=== PATIENT | male | born 1995 | race Caucasian/White ===

== ENCOUNTER 2018-04-19 12:28 | Observation (INO) ==
[2018-04-19 13:43] LABS: Bilirubin,Urine Negative (Negative); Blood,Urine Negative (Negative); Clarity,Urine Clear (Clear); Color,Urine Yellow (Yellow); Glucose,Urine (UA) >=1000 mg/dL (Normal); Ketones,Urine Negative (Negative); Leukocyte Esterase,Urine Negative (Negative); Nitrite,Urine Negative (Negative); PH,Urine 5.5 pH Units (5.0-8.0); Protein,Urine Negative (Neg-Trace); Specific Gravity,Urine > 1.030 (1.010-1.025); Urobilinogen,Urine Normal (Normal)
[2018-04-19] MEDS ORDERED: Isovue-370 500 ML INFUS..BTL IV ONE (13:59)
--- NOTE | 2018-04-19 14:16 | Emergency Department Note ---
Disposition Clinical Impression: Acute appendicitis Qualifiers: Acute appendicitis type: with localized peritonitis Appendicitis gangrene presence: without gangrene Appendicitis perforation presence: without perforation Appendicitis abscess presence: without abscess Qualified Code(s): K35.30 - Acute appendicitis with localized peritonitis, without perforation or gangrene Disposition: Admitted As Inpatient Condition: Good Referrals: NONE,PCP [Primary Care Provider] - Forms: ED Satisfaction Letter, Work/School Release Time of Disposition: 17:51 General Adult HPI - General Chief complaint: ED Abdominal Pain Stated complaint: Abd Pain Time Seen by Provider: 04/19/18 13:40 Source: patient Mode of arrival: ambulatory Limitations: no limitations - History of Present Illness HPI Narrative: This is a 22-year-old male who reports significant right lower quadrant pain that began about 20 hours prior to arrival and increased significantly about 12 hours prior to arrival. He has never had similar symptoms before. No nausea, vomiting, or diarrhea. Pain Scale: 5 - Related Data Allergies Allergy/AdvReac Type Severity Reaction Status Date / Time No Known Allergies Allergy Verified 11/18/16 09:49 All systems ED: reviewed and negative except as stated. Gastrointestinal: Reports: abdominal pain Past Medical History - Past Medical History Medical history: Reports: no medical history Surgical history: Reports: no surgical history Psychiatric history: Reports: no psych history - Social History Smoking Status: Never smoker Smokeless Tobacco Status: No Alcohol use: Reports: none Drug use: Reports: none Physical Exam - General Limitations: no limitations General appearance: alert, in distress (In mild distress with right lower quadrant tenderness) - Head Head exam: atraumatic, normocephalic, normal inspection - Eye Eye exam: Present: normal appearance, PERRL, EOMI. Absent: scleral icterus - Chest Chest inspection: Present: normal inspection, symmetric chest wall rise - Respiratory Respiratory exam: Present: normal lung sounds bilaterally - Cardiovascular Cardiovascular exam: Present: regular rate, normal rhythm, normal heart sounds - Abdominal Exam Abdominal exam: Present: soft, tenderness Abdominal tenderness: Present: RLQ, moderate. Absent: RUQ, LUQ, LLQ - Extremities Exam Extremities exam: Present: normal inspection, full ROM. Absent: tenderness, pedal edema - Neurological Exam Neurological exam: Present: alert, oriented X3 - Psychiatric Psychiatric exam: Present: normal affect, normal mood - Skin Skin exam: Present: warm, dry, intact, normal color Course Course Narrative: This is a 22-year-old male with an exam concerning for appendicitis Vital Signs Temperature 97.6 F 04/19/18 12:29 Pulse Rate 76 04/19/18 12:29 Respiratory Rate 16 04/19/18 12:29 Blood Pressure 175/105 04/19/18 12:29 O2 Sat by Pulse Oximetry 100 04/19/18 12:29 Temperature 97.6 F 04/19/18 12:29 Pulse Rate 95 04/19/18 17:27 Respiratory Rate 16 04/19/18 17:27 Blood Pressure 145/103 04/19/18 17:27 O2 Sat by Pulse Oximetry 98 04/19/18 17:27 Oxygen Delivery Oxygen Delivery Room Air Medical Decision Making - MDM Narrative Medical decision making narrative: This is a 22-year-old male with acute appendicitis. Zosyn was ordered for antimicrobial treatment I discussed his case with Dr. Gonzales, the on-call surgeon, who did see him in the emergency department and accepted him for admission - Lab Data Lab results reviewed: Yes I reviewed the patient's lab results. Lab results narrative: CBC shows leukocytosis of 11.4 BMP was unremarkable except for glucose of 305 LFT was unremarkable UA shows elevated glucose Result diagrams: 04/19/18 13:49 04/19/18 13:49 Lab Results 04/19/18 04/19/18 04/19/18 Range/Units 13:26 13:49 13:49 WBC 11.4 H (4.3-11.1) K/mcL RBC 5.34 (4.19-5.50) M/mcL Hgb 16.2 (12.9-16.9) g/dL Hct 48.0 (37.5-50.1) % MCV 89.9 (83.0-100.0) fL MCH 30.3 (28.0-33.3) pg MCHC 33.8 (31.6-35.5) g/dL RDW 12.3 (11.5-14.5) % Plt Count 250 (140-400) K/mcL MPV 12.0 (9.4-12.4) fL Immature Gran % 0.3 (0-4) % Seg Neutrophils % 77.9 % Lymphocytes % 13.3 % Monocytes % 7.7 % Eosinophils % 0.4 % Basophils % 0.4 % Neutrophils # 8.9 (1.6-8.9) K/mcL Lymphocytes # 1.5 (0.6-4.6) K/mcL Monocytes # 0.9 (0.0-1.3) K/mcL Eosinophils # 0.0 (0.0-0.6) K/mcL Basophils # 0.1 (0.0-0.2) K/mcL Sodium 133 L (136-145) mEq/L Potassium 3.8 (3.5-5.1) mEq/L Chloride 96 L (98-107) mEq/L Carbon Dioxide 26 (23-29) mEq/L BUN 10 (6-20) mg/dL Creatinine 1.06 (0.70-1.30) mg/dL Est GFR ( Amer) > 60 (> 60) Est GFR (Non-Af Amer) > 60 (> 60) BUN/Creatinine Ratio 9 (6-26) Glucose 304 H (70-105) mg/dL Calculated Osmolality 286 (280-300) Calcium 9.9 (8.6-10.3) mg/dL Total Bilirubin 0.9 (0.3-1.0) mg/dL Direct Bilirubin 0.2 (0.0-0.2) mg/dL Indirect Bilirubin 0.7 (0.0-1.2) mg/dL AST 30 (13-39) Units/L ALT 78 H (7-52) Units/L Alkaline Phosphatase 72 (34-104) Units/L Serum Total Protein 8.1 (6.4-8.9) g/dL Albumin 5.0 (3.5-5.7) g/dL Globulin 3.1 (2.4-3.5) g/dL Albumin/Globulin Ratio 1.6 (1.1-2.2) Lipase 25 (11-82) Units/L Urine Color Yellow (Yellow) Urine Clarity Clear (Clear) Urine pH 5.5 (5.0-8.0) pH Units Ur Specific [place] > 1.030 H (1.010-1.025) Urine Protein Negative (Neg-Trace) mg/dL Urine Glucose (UA) >=1000 H (Normal) mg/dL Urine Ketones Negative (Negative) mg/dL Urine Blood Negative (Negative) Urine Nitrite Negative (Negative) Urine Bilirubin Negative (Negative) Urine Urobilinogen Normal (Normal) mg/dL Ur Leukocyte Esterase Negative (Negative) - Radiology Data Radiology results reviewed: Yes I reviewed the patient's radiology results. CT abdomen/pelvis showed acute appendicitis with surrounding peritonitis Critical Care Time Critical Care Time: No
[2018-04-19 14:30] LABS: Alanine Aminotransferase 78 Units/L (7-52); Albumin/Globulin Ratio 1.6 (1.1-2.2); Alkaline Phosphatase 72 Units/L (34-104); Aspartate Amino Transferase 30 Units/L (13-39); BUN/Creatinine Ratio 9 (6-26); Bilirubin,Direct 0.2 mg/dL (0.0-0.2); Bilirubin,Indirect 0.7 mg/dL (0.0-1.2); Bilirubin,Total 0.9 mg/dL (0.3-1.0); Blood Urea Nitrogen 10 mg/dL (6-20); Calcium 9.9 mg/dL (8.6-10.3); Carbon Dioxide 26 mEq/L (23-29); Chloride 96 mEq/L (98-107); Globulin 3.1 g/dL (2.4-3.5); Glucose 304 mg/dL (70-105); Lipase 25 Units/L (11-82); Osmolality,Calculated 286 (280-300); Potassium 3.8 mEq/L (3.5-5.1); Sodium 133 mEq/L (136-145); Total Protein 8.1 g/dL (6.4-8.9); eGFR For Non-African Americans > 60 (> 60)
[2018-04-19 14:32] LABS: Basophils # 0.1 K/mcL (0.0-0.2); Basophils % 0.4 %; Eosinophils % 0.4 %; Hemoglobin 16.2 g/dL (12.9-16.9); Immature Granulocytes % 0.3 % (0-4); Lymphocytes # 1.5 K/mcL (0.6-4.6); Lymphocytes % 13.3 %; Mean Corpuscular HGB Conc 33.8 g/dL (31.6-35.5); Mean Corpuscular Hemoglobin 30.3 pg (28.0-33.3); Mean Corpuscular Volume 89.9 fL (83.0-100.0); Monocytes # 0.9 K/mcL (0.0-1.3); Monocytes % 7.7 %; Neutrophils # 8.9 K/mcL (1.6-8.9); Platelet Count 250 K/mcL (140-400); Red Blood Count 5.34 M/mcL (4.19-5.50); Red Cell Distribution Width 12.3 % (11.5-14.5); Segmented Neutrophils % 77.9 %
[2018-04-19] MEDS ORDERED: Piperacillin/Tazobactam 3.375 GM in Water for inj. (sterile) 20 ML 20 ML IVP ONE (17:25)
--- NOTE | 2018-04-19 18:54 | General Surg History&Physical ---
<Delfin Niño S - Last Filed: 04/19/18 18:48> Date of Encounter: 04/19/18 Time of Encounter: 18:48 Assessment and Plan (1) Acute appendicitis Current Visit: Yes Status: Acute The assessment and plan as outlined above was discussed with the patient and/or family members who expressed understanding and agreement. All questions were answered. CT evidence for appendicitis +Herr's, +Rovsing's, +rebound tenderness, tender to palpation in RLQ WBC 11.4 Will consent and prep patient for laparoscopic appendectomy Patient is NPO, last meal 24 hours ago Patient given zofran in ED Qualifiers: Acute appendicitis type: with localized peritonitis Appendicitis gangrene presence: without gangrene Appendicitis perforation presence: without perforation Appendicitis abscess presence: without abscess Qualified Code(s): K35.30 - Acute appendicitis with localized peritonitis, without perforation or gangrene (2) Hyperglycemia Current Visit: Yes Status: Acute Patient denies history of diabetes BMP glucose elevated to 304 UA positive for glucosuria Recommend starting insulin regimen with glucose checks History of Present Illness Chief complaint: Abdominal pain HPI: Mr. Chua is a 22 year old male with PMHx of right meniscal tear presented this morning with CC of abdominal pain. Patient ate chicken and fried rice last night around 7 PM and developed sharp epigastric pain around 10 PM. The pain lasted a couple hours then resolved. Patient was woken up at 2:30 AM with sudden onset of pain again, which had migrated to the RLQ and suprapubic region. CT showed evidence of acute appendicitis. WBC elevated to 11.4. UA positive for glucosuria. Surgery consulted for appendicitis. Patient seen and examined in ED. He states pain is worse now than earlier toda y. Patient admits to one episode of lose stool this morning. Patient denies fevers/chills, n/v, CP, changes in diet. His last meal was at 7 PM last night (24 hours ago). Past Med Surg Social Fam HX - Past Medical History Medical history: no medical history Psychiatric history: no psych history - Past Surgical History Surgical History: no surgical history Additional surgical history: knee sx - Social History Smoking Status: Never smoker Smokeless Tobacco Status: No Alcohol use: none Drug use: none Medications and Allergies RX: No Known Home Drugs 04/19/18 [History] Allergy/AdvReac Type Severity Reaction Status Date / Time No Known Allergies Allergy Verified 11/18/16 09:49 Review of Systems All systems PM: The remainder of the systems were reviewed and are negative General Surgery Exam Initial Vital Signs Temp Pulse Resp BP Pulse Ox 97.6 F 76 16 175/105 100 04/19/18 12:29 04/19/18 12:29 04/19/18 12:29 04/19/18 12:29 04/19/18 12:29 - General physical appearance well developed, other (mild distress) - Respiratory normal expansion, normal respiratory effort - Cardiovascular Cardiovascular exam: Present: RRR - Abdomen Abdomen general surgery: Present: bowel sounds present, soft, tender, rebound Abdominal Tenderness: Present: RLQ Hernia: Present: none - Integumentary Integumentary general surgery: Present: warm and dry, no abnormal pigmentation - Psychiatric Psychiatric general surgery: Present: A&Ox3, appropriate Results - Labs 04/19/18 13:49 04/19/18 13:49 Abnormal lab results WBC 11.4 K/mcL (4.3-11.1) H 04/19/18 13:49 Sodium 133 mEq/L (136-145) L 04/19/18 13:49 Chloride 96 mEq/L (98-107) L 04/19/18 13:49 Glucose 304 mg/dL (70-105) H 04/19/18 13:49 ALT 78 Units/L (7-52) H 04/19/18 13:49 Ur Specific [place] > 1.030 (1.010-1.025) H 04/19/18 13:26 Urine Glucose (UA) >=1000 mg/dL (Normal) H 04/19/18 13:26 Diabetes panel 04/19/18 Range/Units 13:49 Sodium 133 L (136-145) mEq/L Potassium 3.8 (3.5-5.1) mEq/L Chloride 96 L (98-107) mEq/L Carbon Dioxide 26 (23-29) mEq/L BUN 10 (6-20) mg/dL Creatinine 1.06 (0.70-1.30) mg/dL Glucose 304 H (70-105) mg/dL Calcium 9.9 (8.6-10.3) mg/dL AST 30 (13-39) Units/L ALT 78 H (7-52) Units/L Alkaline Phosphatase 72 (34-104) Units/L Albumin 5.0 (3.5-5.7) g/dL Calcium panel 04/19/18 Range/Units 13:49 Calcium 9.9 (8.6-10.3) mg/dL Albumin 5.0 (3.5-5.7) g/dL Pituitary panel 04/19/18 Range/Units 13:49 Sodium 133 L (136-145) mEq/L Potassium 3.8 (3.5-5.1) mEq/L Chloride 96 L (98-107) mEq/L Carbon Dioxide 26 (23-29) mEq/L BUN 10 (6-20) mg/dL Creatinine 1.06 (0.70-1.30) mg/dL Glucose 304 H (70-105) mg/dL Calcium 9.9 (8.6-10.3) mg/dL Adrenal panel 04/19/18 Range/Units 13:49 Sodium 133 L (136-145) mEq/L Potassium 3.8 (3.5-5.1) mEq/L Chloride 96 L (98-107) mEq/L Carbon Dioxide 26 (23-29) mEq/L BUN 10 (6-20) mg/dL Creatinine 1.06 (0.70-1.30) mg/dL Glucose 304 H (70-105) mg/dL Calcium 9.9 (8.6-10.3) mg/dL Total Bilirubin 0.9 (0.3-1.0) mg/dL AST 30 (13-39) Units/L ALT 78 H (7-52) Units/L Alkaline Phosphatase 72 (34-104) Units/L Albumin 5.0 (3.5-5.7) g/dL All other labs normal. <Yolanda Gonzales - Last Filed: 04/19/18 20:08> Assessment and Plan (1) Leucocytosis Current Visit: Yes Status: Acute The assessment and plan as outlined above was discussed with the patient and/or family members who expressed understanding and agreement. All questions were answered. due to acute appendicitis, continue abx check CBC in am Qualifiers: Leukocytosis type: unspecified Qualified Code(s): D72.829 - Elevated white blood cell count, unspecified (2) Acute appendicitis Current Visit: Yes Status: Acute The assessment and plan as outlined above was discussed with the patient and/or family members who expressed understanding and agreement. All questions were answered. discussed with patient his CT results, labs and physical findings. He has acute appendicitis will plan laparoscopic appendectomy, possible open, risks and benefits discussed and he wishes to proceed npo ivf hydration prn pain control received abx in ED prn antiemetics Qualifiers: Acute appendicitis type: with localized peritonitis Appendicitis gangrene presence: without gangrene Appendicitis perforation presence: without perforation Appendicitis abscess presence: without abscess Qualified Code(s): K35.30 - Acute appendicitis with localized peritonitis, without perforation or gangrene (3) Hyperglycemia Current Visit: Yes Status: Acute The assessment and plan as outlined above was discussed with the patient and/or family members who expressed understanding and agreement. All questions were answered. History of Present Illness HPI: Mr. Chua is a 22 year old male who began having at first epigastric pain which resolved, then midabdominal and RLQ sharp pain this am. Pain has continued throughout the day. He has no nausea or emesis. One episode of loose stools. No fevers, chills or night sweats. He came to ED due to pain and had CT scan abdomen and pelvis showing acute uncomplicated appendicitis. Elevated wbc at 11.4. No fevers. Past Med Surg Social Fam HX - Past Medical History Source: patient Medical history: no medical history - Past Surgical History Additional surgical history: right meniscus tear repair - Social History Smoking Status: Never smoker Smokeless Tobacco Status: No Alcohol use: none Drug use: none - Family History Grandfather History Unknown: Yes Review of Systems All systems PM: reviewed and no additional remarkable complaints except as stated All systems PM: The remainder of the systems were reviewed and are negative General Surgery Exam Initial Vital Signs Temp Pulse Resp BP Pulse Ox 97.6 F 76 16 175/105 100 04/19/18 12:29 04/19/18 12:29 04/19/18 12:29 04/19/18 12:29 04/19/18 12:29 - General physical appearance well developed, well nourished, no distress - Eyes PERRL, normal ocular movement - ENT normal mucosa, normocephalic - Neck trachea midline - Respiratory normal expansion, normal respiratory effort - Cardiovascular Cardiovascular exam: Present: RRR - Abdomen Abdomen general surgery: Present: bowel sounds present, soft, tender. Absent: distended, guarding, rebound Abdominal Tenderness: Present: RLQ - Integumentary Integumentary general surgery: Present: warm and dry, no abnormal pigmentation - Neurologic Present: CN 2-12 grossly intact - Musculoskeletal Present: normal posture - Psychiatric Psychiatric general surgery: Present: A&Ox3 Results - Labs 04/19/18 13:49 04/19/18 13:49 Abnormal lab results WBC 11.4 K/mcL (4.3-11.1) H 04/19/18 13:49 Sodium 133 mEq/L (136-145) L 04/19/18 13:49 Chloride 96 mEq/L (98-107) L 04/19/18 13:49 Glucose 304 mg/dL (70-105) H 04/19/18 13:49 ALT 78 Units/L (7-52) H 04/19/18 13:49 Ur Specific [place] > 1.030 (1.010-1.025) H 04/19/18 13:26 Urine Glucose (UA) >=1000 mg/dL (Normal) H 04/19/18 13:26 Diabetes panel 04/19/18 Range/Units 13:49 Sodium 133 L (136-145) mEq/L Potassium 3.8 (3.5-5.1) mEq/L Chloride 96 L (98-107) mEq/L Carbon Dioxide 26 (23-29) mEq/L BUN 10 (6-20) mg/dL Creatinine 1.06 (0.70-1.30) mg/dL Glucose 304 H (70-105) mg/dL Calcium 9.9 (8.6-10.3) mg/dL AST 30 (13-39) Units/L ALT 78 H (7-52) Units/L Alkaline Phosphatase 72 (34-104) Units/L Albumin 5.0 (3.5-5.7) g/dL Calcium panel 04/19/18 Range/Units 13:49 Calcium 9.9 (8.6-10.3) mg/dL Albumin 5.0 (3.5-5.7) g/dL Pituitary panel 04/19/18 Range/Units 13:49 Sodium 133 L (136-145) mEq/L Potassium 3.8 (3.5-5.1) mEq/L Chloride 96 L (98-107) mEq/L Carbon Dioxide 26 (23-29) mEq/L BUN 10 (6-20) mg/dL Creatinine 1.06 (0.70-1.30) mg/dL Glucose 304 H (70-105) mg/dL Calcium 9.9 (8.6-10.3) mg/dL Adrenal panel 04/19/18 Range/Units 13:49 Sodium 133 L (136-145) mEq/L Potassium 3.8 (3.5-5.1) mEq/L Chloride 96 L (98-107) mEq/L Carbon Dioxide 26 (23-29) mEq/L BUN 10 (6-20) mg/dL Creatinine 1.06 (0.70-1.30) mg/dL Glucose 304 H (70-105) mg/dL Calcium 9.9 (8.6-10.3) mg/dL Total Bilirubin 0.9 (0.3-1.0) mg/dL AST 30 (13-39) Units/L ALT 78 H (7-52) Units/L Alkaline Phosphatase 72 (34-104) Units/L Albumin 5.0 (3.5-5.7) g/dL All other labs normal. - Imaging CT scan - abdomen: report reviewed, image reviewed CT scan - pelvis: report reviewed, image reviewed - Attending Attestation I examined this patient and my medical decision-making was reviewed with the Resident Physician. I agree with the documented findings, disposition and treatment plan as described except to the extent set forth below.
[2018-04-19] MEDS ORDERED: 0.9 % Sodium Chloride 1,000 ML IVC SCH (19:15)
[2018-04-19] MEDS ORDERED: Ondansetron 4 MG/2 ML VIAL IVP PRN ×2 (19:15→22:34)
[2018-04-19] MEDS ORDERED: *HR* Promethazine 25 MG/ML VIAL IVP PRN ×3 (19:15→22:34)
[2018-04-19] MEDS ORDERED: *HR* OxyCODONE/APAP 5/325 TABLET PO PRN (19:17)
[2018-04-19] MEDS ORDERED: OXYCODONE Oral CONC 10 MG/0.5 ML ORAL.SYG SL PRN ×2 (19:18→22:34)
[2018-04-19] MEDS ORDERED: Lidocaine -MPF 4% 5 ML AMPUL ONE (19:34)
[2018-04-19] MEDS ORDERED: *HR* Succinylcholine 200 MG/10 ML VIAL IVP ONE (19:34)
[2018-04-19] MEDS ORDERED: *HR* Propofol 200 MG/20 ML VIAL IVP ONE ×2 (19:34→19:45)
[2018-04-19] MEDS ORDERED: *HR* FentaNYL (PF) 100 MCG/2 ML VIAL ONE (19:34)
[2018-04-19] MEDS ORDERED: Lidocaine -MPF 2% 2 ML VIAL ONE (19:34)
[2018-04-19] MEDS ORDERED: *HR* Rocuronium Bromide 50 MG/5 ML VIAL ONE (19:34)
--- NOTE | 2018-04-19 19:45 | Anesthesia Evaluation PreOp ---
Date of Encounter: 04/19/18 Time of Encounter: 19:43 - Past History Planned Operation: Lap appy Cardiac History: Denies any Significant Hx Pulmonary History: Denies Any Significant HX HYPERBARIC WELDER DIVER History: Denies Any Significant HX Other Medical History: Denies Any Significant HX, Other (hyperglycemia) Anesthesia History: No Prior Anesthetic Complications, Past Anesthesia (knee sx) Alcohol Use: none Drug use: none Medications and Allergies No Known Home Drugs 04/19/18 [History] Allergy/AdvReac Type Severity Reaction Status Date / Time No Known Allergies Allergy Verified 11/18/16 09:49 - Meds/Allergy Pre-op Review Medications Reviewed: Yes Allergies Reviewed: Yes Beta Blockers on Current Med List: No Anesthesia Results - Labs 04/19/18 13:49 04/19/18 13:49 Anesthesia Exam Vital Signs/O2 Sat, Most Current Temp Pulse Resp BP Pulse Ox 98.1 F 83 16 154/64 96 04/19/18 19:28 04/19/18 19:28 04/19/18 19:28 04/19/18 19:28 04/19/18 19:28 Weight: 121kg NPO (# of Hours): acute abd - HEENT Pupil (Motor): Pupils equal, EOMI Mallampati: II Teeth: Poor dentition (chipped upper incisors) Oral Opening: Greater than 3 - HYPERBARIC WELDER DIVER LOC: Oriented HYPERBARIC WELDER DIVER Motor: Normal RUE, Normal LUE, Normal RLE, Normal LLE, Normal Face HYPERBARIC WELDER DIVER Sensory: Normal: RUE, LUE, RLE, LLE, Face - Cardiac Rhythm: Regular - Pulmonary Breath Sounds: bilateral Clear Respiratory Effort: Symmetrical Anesthesia Assess/Plan ASA Score: 2, E Modified Guillermina Scale for Level of Consciousness: Cooperative, oriented, and tranquil Anesthetic Plan: General Monitoring Plan: Standard Monitors Recovery Plan: PACU
[2018-04-19] MEDS ORDERED: *HR* Meperidine 25 MG/ML SYRINGE IVP PRN (19:48)
[2018-04-19] MEDS ORDERED: *HR* OxyCODONE Immed Rel 5 MG TABLET PO PRN (19:48)
[2018-04-19] MEDS ORDERED: Ondansetron 4 MG/2 ML VIAL IVP ONE (19:48)
[2018-04-19] MEDS ORDERED: Ringers Solution, Lactated 1,000 ML IVC SCH (20:00)
[2018-04-19] MEDS ORDERED: SUGAMMADEX SODIUM 500 MG/5 ML VIAL IV ONE (20:14)
[2018-04-19] MEDS ORDERED: Acetaminophen IV 1,000 MG/100 ML INFUS..BTL ONE (20:14)
[2018-04-19] MEDS: *HR* HYDROmorphone (PF) 1 MG/ML SYRINGE IVP PRN ×2 (21:44→22:00)
--- NOTE | 2018-04-19 21:45 | Operative Note ---
Date of procedure: 04/19/18 Pre-op diagnosis: acute appendicitis Post-op diagnosis: same Procedure: Laparoscopic appendectomy Complications: none immediate Anesthesia: GETA, local Local Anesthetics: 0.5% Sensorcaine HCL SubQ (cc) (30) Surgeon: Yolanda Gonzales Was there an physical therapy assistant present: No Estimated blood loss (cc): 10 Specimen: appendix Condition: stable Disposition: PACU Procedure in Detail: The patient was brought into the operating suite and placed supine on the operating table. Sign-in was performed and everyone was in agreement. Anesthesia was induced and patient was endotracheally intubated by anesthesia without incident. Patient's left arm was tucked at his side. An OG tube was placed by anesthesia. The abdomen was prepped and draped in the usual sterile fashion. A timeout was performed and again everyone was in agreement. A supraumbilical incision was made through the skin and the subcutaneous tissue with an 11 blade. Towel clamps were placed on either side of the umbilicus for retraction. S-retractors were used to dissect down to the anterior abdominal wall linea alba fascia. A Veress needle was placed into this incision and a water drop test confirmed placement and the abdomen was insufflated. We then entered the abdomen with the 5 mm 0 degree laparoscope on a 5 mm X-levy trocar. The area under entry was visualized and there was no bleeding and no apparent bowel injury. We placed a suprapubic 5 mm port under direct visualization after first incising the skin with an 11 blade. The laparoscope was placed through this and we exchanged the supraumbilical port for a 12 mm port under direct visualization. We then placed another 5 mm port in the left lower quadrant position under direct visualization after first incising the skin with an 11 blade. The patient was placed in slight Trendelenburg left side down position. The cecum was located as was the appendix. The cecum fat was very edematous due to inflammation. The appendix densely adherent to the right abdominal wall. The appendix was elevated with gentle blunt dissection with a laparoscopic DeBakey and the suction court crier. The appendix was grasped and retracted anteriorly and caudally with a laparoscopic Isabelle. The appendix was transected at the base of the cecum with laparoscopic Flex-ex ETS stapler utilizing a white load. The appendix was placed in a laparoscopic Endo Catch bag and removed via the supraumbilical incision site. The staple line was evaluated and there was no bleeding and the staple line was intact. The area was irrigated with sterile saline which was then suctioned free from the abdomen. An incision in RLQ was made with a 11 blade, a [place] was placed through this and 19F janette drain was placed through the 12 mm port site and pulled out through the abdominal wall and secured to the skin with a 2-0 silk stitch. The drain was layed between the right colon and the right abdominal wall. The insufflation was suctioned free from the abdomen and all trochars removed. We closed the abdominal wall at the supraumbilical incision site with an 0 Vicryl [id number] stitch. A 30 cc of 0.5% Marcaine was injected subcutaneously at the 3 port sites. The skin at the two 5 mm port sites was closed with 4-0 Monocryl interrupted subcuticular stitches. The skin at the supraumbilical incision site was closed with a 4-0 Monocryl running subcuticular stitch. Dermabond was applied to the wounds. The patient was extubated in the OR and tolerated the procedure well and was taken to PACU after all lap and instrument counts were correct at the end of the case.
--- NOTE | 2018-04-19 22:29 | Anesthesia Evaluation Post Op ---
Date of Encounter: 04/19/18 Time of Encounter: 22:28 - Vital Signs Vital Signs: Vital Signs/O2 Sat, Most Current Temp Pulse Resp BP Pulse Ox 98.7 F 89 16 148/96 94 04/19/18 22:06 04/19/18 22:15 04/19/18 22:15 04/19/18 22:15 04/19/18 22:15 - Lungs Lungs: Clear Ascult./Percussion - Airway Airway: Non-obstructed - Cardiovascular Regular Rate - Mental Status Mental Status: Alert & Oriented, Answers Appropriately - Pain Pain Scale used: Numeric (1 - 10) (tolerable) - Nausea Vomiting Nausea Vomiting: Not Present - Hydration Hydration: NPO - Discharge PostOp Status: Transfer Patient to floor
[2018-04-19] MEDS ORDERED: Dextrose Gel 15 GM/37.5 ML TUBE PO PRN ×2 (22:34)
[2018-04-19] MEDS ORDERED: *HR* Dextrose 50 % in Water (Syg) 50 ML SYRINGE IVP PRN (22:34)
[2018-04-19] MEDS ORDERED: D5% in Water 1,000 ML IVC PRN (22:34)
[2018-04-19] MEDS: *HR* OxyCODONE/APAP 5/325 TABLET PO PRN (23:05)
[2018-04-19] MEDS: 0.9 % Sodium Chloride 1,000 ML IVC SCH (23:06)
[2018-04-19] MEDS: Piperacillin/Tazobactam 3.375 GM in 0.9 % Sodium Chloride Mini Bag 100 ML IVPB SCH (23:55)
[2018-04-20] MEDS ORDERED: Piperacillin/Tazobactam 3.375 GM in 0.9 % Sodium Chloride Mini Bag 100 ML IVPB SCH
[2018-04-20] MEDS: *HR* OxyCODONE/APAP 5/325 TABLET PO PRN (04:02)
[2018-04-20 05:48] LABS: Basophils % 0.1 %; Hematocrit 45.2 % (37.5-50.1); Hemoglobin 15.5 g/dL (12.9-16.9); Immature Granulocytes % 0.4 % (0-4); Lymphocytes # 0.9 K/mcL (0.6-4.6); Mean Corpuscular HGB Conc 34.3 g/dL (31.6-35.5); Mean Corpuscular Hemoglobin 30.7 pg (28.0-33.3); Mean Corpuscular Volume 89.5 fL (83.0-100.0); Monocytes % 7.1 %; Neutrophils # 12.6 K/mcL (1.6-8.9); Platelet Count 284 K/mcL (140-400); Red Blood Count 5.05 M/mcL (4.19-5.50); Red Cell Distribution Width 12.5 % (11.5-14.5); Segmented Neutrophils % 86.4 %
[2018-04-20 06:10] LABS: BUN/Creatinine Ratio 8 (6-26); Blood Urea Nitrogen 9 mg/dL (6-20); Calcium 10.2 mg/dL (8.6-10.3); Carbon Dioxide 24 mEq/L (23-29); Chloride 98 mEq/L (98-107); Glucose 351 mg/dL (70-105); Osmolality,Calculated 289 (280-300); Potassium 4.2 mEq/L (3.5-5.1); Sodium 133 mEq/L (136-145); eGFR For Non-African Americans > 60 (> 60)
[2018-04-20 06:43] LABS: Estimated Average Glucose 235 mg/dl; Hemoglobin A1C 9.8 %
[2018-04-20] MEDS: 0.9 % Sodium Chloride 1,000 ML IVC SCH (08:04)
[2018-04-20] MEDS: Piperacillin/Tazobactam 3.375 GM in 0.9 % Sodium Chloride Mini Bag 100 ML IVPB SCH ×2 (08:05→16:43)
[2018-04-20] MEDS: Insulin LISPRO 300 UNITS/3 ML VIAL SQ SCH ×3 (08:18→16:50)
--- NOTE | 2018-04-20 13:25 | General Surgery Progress Note ---
<Yolanda Gonzales Howie - Last Filed: 04/20/18 16:32> - Assessment and Plan (1) Leucocytosis Current Visit: Yes Status: Acute continue iv abx - zosyn, trend wbc Qualifiers: Leukocytosis type: unspecified Qualified Code(s): D72.829 - Elevated white blood cell count, unspecified (2) Acute appendicitis Current Visit: Yes Status: Acute s/p lap appy prn pain control ok regular diet cont antibiotics ambulate ok to shower decrease ivf Qualifiers: Acute appendicitis type: with localized peritonitis Appendicitis gangrene presence: without gangrene Appendicitis perforation presence: without perforation Appendicitis abscess presence: without abscess Qualified Code(s): K35.30 - Acute appendicitis with localized peritonitis, without perforation or gangrene (3) Hyperglycemia Current Visit: Yes Status: Acute Subjective Patient reports: still having pain, pain is less, tolerating liquids well, no flatus, no bowel movement, afebrile Objective Vital Signs - Last 8 Hours Temp Pulse Resp BP Pulse Ox 04/20/18 14:30 98.8 F 89 16 129/80 97 04/20/18 10:09 98.8 F 95 16 134/82 95 Intake and Output 04/20/18 04/20/18 04/20/18 07:59 15:59 23:59 Intake Total 300 / 300 1260 / 1260 Output Total 0 / 0 860 / 860 Balance 300 / 300 400 / 400 Intake: IV Fluids 100 / 100 1200 / 1200 0.9 % Sodium Chloride 1,000 ML 1000 / 1000 @ 120 mls/hr IVC .Q8H20M [facility] Rx #:[id number] Ofirmev 1,000 mg/100 ml 1,000 100 / 100 mg In 100 ml @ 400 mls/hr IVPB Q6HR [facility] Rx#:[id number] Zosyn 3.375 GM In 0.9 % Sodium 100 / 100 100 / 100 Chloride (Mini-Bag +) 100 ML @ 25 mls/hr IVPB Q8HR [facility] Rx#: [id number] Oral 200 / 200 60 / 60 Output: Urine 850 / 850 Wound Drainage 0 / 0 10 / 10 Right Lower Abdomen 0 / 0 10 / 10 Other: Meal Breakfast # Voids 2 3 # Bowel Movements 0 Blood Glucose* 238 - General physical appearance well developed, well nourished, no distress - Eyes PERRL, normal ocular movement - ENT normal mucosa, normocephalic - Neck Neck exam: trachea midline - Respiratory normal expansion, normal respiratory effort - Cardiovascular Cardiovascular exam: Present: RRR - Abdomen Abdomen: Present: soft, tender (appropriate post op tenderness) Abdominal Tenderness: diffusely - Incision Incision: Present: clean and dry, intact - Integumentary no rash, no growths - Musculoskeletal normal posture - Psychiatric oriented to time, oriented to person, oriented to place, memory intact - Labs 04/20/18 05:18 04/20/18 05:18 Diabetes panel 04/20/18 04/20/18 Range/Units 05:18 05:18 Sodium 133 L (136-145) mEq/L Potassium 4.2 (3.5-5.1) mEq/L Chloride 98 (98-107) mEq/L Carbon Dioxide 24 (23-29) mEq/L BUN 9 (6-20) mg/dL Creatinine 1.08 (0.70-1.30) mg/dL Glucose 351 H (70-105) mg/dL Hemoglobin A1c 9.8 H ( - 5.6) % Calcium 10.2 (8.6-10.3) mg/dL Calcium panel 04/20/18 Range/Units 05:18 Calcium 10.2 (8.6-10.3) mg/dL Pituitary panel 04/20/18 Range/Units 05:18 Sodium 133 L (136-145) mEq/L Potassium 4.2 (3.5-5.1) mEq/L Chloride 98 (98-107) mEq/L Carbon Dioxide 24 (23-29) mEq/L BUN 9 (6-20) mg/dL Creatinine 1.08 (0.70-1.30) mg/dL Glucose 351 H (70-105) mg/dL Calcium 10.2 (8.6-10.3) mg/dL Adrenal panel 04/20/18 Range/Units 05:18 Sodium 133 L (136-145) mEq/L Potassium 4.2 (3.5-5.1) mEq/L Chloride 98 (98-107) mEq/L Carbon Dioxide 24 (23-29) mEq/L BUN 9 (6-20) mg/dL Creatinine 1.08 (0.70-1.30) mg/dL Glucose 351 H (70-105) mg/dL Calcium 10.2 (8.6-10.3) mg/dL Consult Discharge Plan - Plan Instructions: Glimepiride (By mouth), Metformin (By mouth), How to Check Your Blood Sugar (DC), Diabetic Hypoglycemia (GEN), Diabetes Mellitus Type 2 in Adults (DC), Diabetes Mellitus Type 2 in Adults (GEN), What is Insulin (DC), Giving an Insulin Injection (DC), Diabetic Hyperglycemia (DC) Referrals: Andreia Cotton MD [Partnered Physician] - - Attending Attestation I examined this patient and my medical decision-making was reviewed with the Resident Physician. I agree with the documented findings, disposition and treatment plan as described except to the extent set forth below. <Delfin Niño S - Last Filed: 04/20/18 17:13> Date of Encounter: 04/20/18 Time of Encounter: 10:00 - Assessment and Plan (1) Acute appendicitis Current Visit: Yes Status: Acute Patient is post-op day [address] showed evidence of appendicitis WBC 11.4 > 14.6 Patient on clear liquid diet, can advance as tolerated Afebrile overnight Continue zosyn (day 2) Continue zofran, phenergan, and prilosec Continue oxycodone for pain Started patient on IV acetaminophen for pain Decrease IVF No BM yet Minimal serosanguinous output (10 ml) from drain Qualifiers: Acute appendicitis type: with localized peritonitis Appendicitis gangrene presence: without gangrene Appendicitis perforation presence: without perforation Appendicitis abscess presence: without abscess Qualified Code(s): K35.30 - Acute appendicitis with localized peritonitis, without perforation or gangrene (2) Hyperglycemia Current Visit: Yes Status: Acute Patient's glucose is 351 HbA1c 9.8 New diagnosis of diabetes Started insulin salvatore Will contact [facility] to schedule patient for outpatient diabetes management Subjective Patient reports: no new complaints, still having pain, no flatus, no bowel movem ent, afebrile Narrative: Patient is post-op day 1 for laparoscopic appendectomy. He denies nausea/vomiting, chest pain, SOB. Objective Vital Signs - Last 8 Hours Temp Pulse Resp BP Pulse Ox 04/20/18 10:09 98.8 F 95 16 134/82 95 04/20/18 06:43 98.3 F 102 17 126/74 94 Intake and Output 10/22/18 10/23/18 10/23/18 23:59 07:59 15:59 Intake Total 300 / 300 1160 / 1160 Output Total 0 / 0 Balance 300 / 300 1150 / 1150 Intake: IV Fluids 100 / 100 1100 / 1100 0.9 % Sodium Chloride 1,000 ML 1000 / 1000 @ 120 mls/hr IVC .Q8H20M [facility] Rx #:[id number] Zosyn 3.375 GM In 0.9 % Sodium 100 / 100 100 / 100 Chloride (Mini-Bag +) 100 ML @ 25 mls/hr IVPB Q8HR [facility] Rx#: [id number] Oral 200 / 200 60 / 60 Output: Urine 0 / 0 Estimated Blood Loss Wound Drainage 0 / 0 0 / 0 Right Lower Abdomen 0 / 0 0 / 0 Other: Meal Breakfast # Voids 2 4 # Bowel Movements 0 Weight 121.5 kg Blood Glucose* 218 238 - General physical appearance well developed - Respiratory normal expansion, normal respiratory effort - Cardiovascular Cardiovascular exam: Present: RRR - Abdomen Abdomen: Present: bowel sounds present, soft, tender Abdominal Tenderness: diffusely - Incision Incision: Present: clean and dry, intact - Integumentary no rash - Psychiatric oriented to time, oriented to person, oriented to place - Labs 04/20/18 05:18 04/20/18 05:18 Diabetes panel 04/19/18 04/20/18 04/20/18 Range/Units 13:49 05:18 05:18 Sodium 133 L 133 L (136-145) mEq/L Potassium 3.8 4.2 (3.5-5.1) mEq/L Chloride 96 L 98 (98-107) mEq/L Carbon Dioxide 26 24 (23-29) mEq/L BUN 10 9 (6-20) mg/dL Creatinine 1.06 1.08 (0.70-1.30) mg/dL Glucose 304 H 351 H (70-105) mg/dL Hemoglobin A1c 9.8 H ( - 5.6) % Calcium 9.9 10.2 (8.6-10.3) mg/dL AST 30 (13-39) Units/L ALT 78 H (7-52) Units/L Alkaline Phosphatase 72 (34-104) Units/L Albumin 5.0 (3.5-5.7) g/dL Calcium panel 04/19/18 04/20/18 Range/Units 13:49 05:18 Calcium 9.9 10.2 (8.6-10.3) mg/dL Albumin 5.0 (3.5-5.7) g/dL Pituitary panel 04/19/18 04/20/18 Range/Units 13:49 05:18 Sodium 133 L 133 L (136-145) mEq/L Potassium 3.8 4.2 (3.5-5.1) mEq/L Chloride 96 L 98 (98-107) mEq/L Carbon Dioxide 26 24 (23-29) mEq/L BUN 10 9 (6-20) mg/dL Creatinine 1.06 1.08 (0.70-1.30) mg/dL Glucose 304 H 351 H (70-105) mg/dL Calcium 9.9 10.2 (8.6-10.3) mg/dL Adrenal panel 04/19/18 04/20/18 Range/Units 13:49 05:18 Sodium 133 L 133 L (136-145) mEq/L Potassium 3.8 4.2 (3.5-5.1) mEq/L Chloride 96 L 98 (98-107) mEq/L Carbon Dioxide 26 24 (23-29) mEq/L BUN 10 9 (6-20) mg/dL Creatinine 1.06 1.08 (0.70-1.30) mg/dL Glucose 304 H 351 H (70-105) mg/dL Calcium 9.9 10.2 (8.6-10.3) mg/dL Total Bilirubin 0.9 (0.3-1.0) mg/dL AST 30 (13-39) Units/L ALT 78 H (7-52) Units/L Alkaline Phosphatase 72 (34-104) Units/L Albumin 5.0 (3.5-5.7) g/dL
[2018-04-20] MEDS: Acetaminophen IV 1,000 MG/100 ML INFUS..BTL IVPB SCH ×2 (13:37→16:49)
[2018-04-20] MEDS ORDERED: 0.9 % Sodium Chloride 1,000 ML IVC SCH (16:34)
[2018-04-21] MEDS: 0.9 % Sodium Chloride 1,000 ML IVC SCH (00:18)
[2018-04-21] MEDS: Acetaminophen IV 1,000 MG/100 ML INFUS..BTL IVPB SCH ×2 (00:22→05:50)
[2018-04-21] MEDS: Piperacillin/Tazobactam 3.375 GM in 0.9 % Sodium Chloride Mini Bag 100 ML IVPB SCH ×2 (00:22→08:12)
[2018-04-21 06:08] LABS: Basophils # 0.1 K/mcL (0.0-0.2); Basophils % 0.7 %; Eosinophils # 0.1 K/mcL (0.0-0.6); Eosinophils % 1.1 %; Hematocrit 38.7 % (37.5-50.1); Hemoglobin 12.9 g/dL (12.9-16.9); Immature Granulocytes % 0.3 % (0-4); Lymphocytes # 2.1 K/mcL (0.6-4.6); Mean Corpuscular HGB Conc 33.3 g/dL (31.6-35.5); Mean Corpuscular Hemoglobin 30.7 pg (28.0-33.3); Mean Corpuscular Volume 92.1 fL (83.0-100.0); Mean Platelet Volume 11.9 fL (9.4-12.4); Monocytes # 0.9 K/mcL (0.0-1.3); Monocytes % 10.3 %; Neutrophils # 5.6 K/mcL (1.6-8.9); Platelet Count 195 K/mcL (140-400); Red Cell Distribution Width 12.8 % (11.5-14.5); Segmented Neutrophils % 63.6 %
[2018-04-21 06:41] LABS: BUN/Creatinine Ratio 10 (6-26); Blood Urea Nitrogen 10 mg/dL (6-20); Calcium 9.2 mg/dL (8.6-10.3); Carbon Dioxide 25 mEq/L (23-29); Chloride 104 mEq/L (98-107); Glucose 264 mg/dL (70-105); Osmolality,Calculated 292 (280-300); Potassium 3.9 mEq/L (3.5-5.1); Sodium 137 mEq/L (136-145); eGFR For Non-African Americans > 60 (> 60)
[2018-04-21 06:48] VITALS: BP 152/98
[2018-04-21] MEDS: Insulin LISPRO 300 UNITS/3 ML VIAL SQ SCH ×2 (08:12→12:17)
--- NOTE | 2018-04-21 10:30 | General Surgery Progress Note ---
Date of Encounter: 04/21/18 Time of Encounter: 10:25 - Assessment and Plan (1) Acute appendicitis Current Visit: Yes Status: Acute Patient is post-op day [address] showed evidence of appendicitis WBC 14.6 > 8.8 today Patient on diabetic diet Afebrile overnight Continue zosyn (day 3) On zofran and phenergan PRN for nausea On prilosec for GI prophylaxis Continue oxycodone for pain Started patient on IV acetaminophen for pain Decrease IVF Patient had BM last night 25 ml serosanguinous output from drain yesterday, minimal amount in bag this morning Qualifiers: Acute appendicitis type: with localized peritonitis Appendicitis gangrene presence: without gangrene Appendicitis perforation presence: without perforation Appendicitis abscess presence: without abscess Qualified Code(s): K35.30 - Acute appendicitis with localized peritonitis, without perforation or gangrene (2) Hyperglycemia Current Visit: Yes Status: Acute Patient's glucose is 264 HbA1c 9.8 New diagnosis of diabetes On med dose sliding scale insulin Patient scheduled with Dr. Haynes after discharge for diabetes management Subjective Patient reports: no new complaints, feels better, pain is less, tolerating a regular diet, bowel movement, afebrile Narrative: Patient denies nausea, vomiting, chills, chest pain, SOB. Objective Vital Signs - Last 8 Hours Temp Pulse Resp BP Pulse Ox 04/21/18 06:42 97.9 F 64 17 152/98 95 04/21/18 03:07 98.3 F 74 15 116/73 97 Intake and Output 04/20/18 04/21/18 04/21/18 23:59 07:59 15:59 Intake Total 1680 / 1680 300 / 300 120 / 120 Output Total 465 / 465 0 / 0 Balance 1215 / 1215 300 / 300 120 / 120 Intake: IV Fluids 1200 / 1200 300 / 300 0.9 % Sodium Chloride 1,000 ML 1000 / 1000 @ 120 mls/hr IVC .Q8H20M [facility] Rx #:[id number] Ofirmev 1,000 mg/100 ml 1,000 100 / 100 200 / 200 mg In 100 ml @ 400 mls/hr IVPB Q6HR [facility] Rx#:[id number] Zosyn 3.375 GM In 0.9 % Sodium 100 / 100 100 / 100 Chloride (Mini-Bag +) 100 ML @ 25 mls/hr IVPB Q8HR [facility] Rx#: [id number] Oral 480 / 480 0 / 0 120 / 120 Output: Urine 450 / 450 0 / 0 Wound Drainage 15 0 / 0 Right Lower Abdomen 15 0 / 0 Other: Meal Dinner Breakfast Percent of Meal Consumed 100% 80% # Voids 1 Weight 126 kg Blood Glucose* 244 262 Patient Weight 04/21/18 23:59 Weight 126 kg - General physical appearance well developed - Respiratory normal expansion, normal respiratory effort - Cardiovascular Cardiovascular exam: Present: RRR - Abdomen Abdomen: Present: bowel sounds present, soft, tender (appropriately tender over incision and lower abdomen) Hernia: none Additional Comments: KEVIN drain intact in lower abdomen, minimal serosanguinous output in bag - Incision Incision: Present: clean and dry, intact - Integumentary no rash - Musculoskeletal normal gait, normal posture - Psychiatric oriented to time, oriented to person, oriented to place - Labs 04/21/18 05:36 04/21/18 05:36 Diabetes panel 04/21/18 Range/Units 05:36 Sodium 137 (136-145) mEq/L Potassium 3.9 (3.5-5.1) mEq/L Chloride 104 (98-107) mEq/L Carbon Dioxide 25 (23-29) mEq/L BUN 10 (6-20) mg/dL Creatinine 1.01 (0.70-1.30) mg/dL Glucose 264 H (70-105) mg/dL Calcium 9.2 (8.6-10.3) mg/dL Calcium panel 04/21/18 Range/Units 05:36 Calcium 9.2 (8.6-10.3) mg/dL Pituitary panel 04/21/18 Range/Units 05:36 Sodium 137 (136-145) mEq/L Potassium 3.9 (3.5-5.1) mEq/L Chloride 104 (98-107) mEq/L Carbon Dioxide 25 (23-29) mEq/L BUN 10 (6-20) mg/dL Creatinine 1.01 (0.70-1.30) mg/dL Glucose 264 H (70-105) mg/dL Calcium 9.2 (8.6-10.3) mg/dL Adrenal panel 04/21/18 Range/Units 05:36 Sodium 137 (136-145) mEq/L Potassium 3.9 (3.5-5.1) mEq/L Chloride 104 (98-107) mEq/L Carbon Dioxide 25 (23-29) mEq/L BUN 10 (6-20) mg/dL Creatinine 1.01 (0.70-1.30) mg/dL Glucose 264 H (70-105) mg/dL Calcium 9.2 (8.6-10.3) mg/dL Consult Discharge Plan - Plan Instructions: Glimepiride (By mouth), Metformin (By mouth), How to Check Your Blood Sugar (DC), Diabetic Hypoglycemia (GEN), Diabetes Mellitus Type 2 in Adults (DC), Diabetes Mellitus Type 2 in Adults (GEN), What is Insulin (DC), Giving an Insulin Injection (DC), Diabetic Hyperglycemia (DC) Referrals: Andreia Cotton MD [Partnered Physician] - Gaston Haynes MD [Partnered Physician] - 04/29/18 8:30 am (You're schedule for a well check with your primary care physician - Dr. Haynes. Your scheduled appointment is 8:30 AM on April 29. The office will be sending you a new patient packet in the mail, please fill out appropriate medical history on the packet and bring a list of medications you're currently prescribed. If you do not get the packet before your appointment please arrive 30 minutes earlier to fill out the appropriate paperwork. Please give a 24 hour notice to cancel or reschedule your appointment if needed.)
--- NOTE | 2018-04-21 11:47 | Discharge Summary ---
<Delfin Niño - Last Filed: 04/21/18 11:41> Orders not resulted at time of discharge: Pending orders 04/19/18 21:12 Surgical Pathology [PTH] Routine 04/20/18 12:18 C-Peptide Stat Glutamic Acid Decarboxylase Ab Stat Insulin, Total and Free Stat - Discharge Diagnosis (1) Acute appendicitis Status: Acute Qualifiers: Acute appendicitis type: with localized peritonitis Appendicitis gangrene presence: without gangrene Appendicitis perforation presence: without perforation Appendicitis abscess presence: without abscess Qualified Code(s): K35.30 - Acute appendicitis with localized peritonitis, without perforation or gangrene (2) Hyperglycemia Status: Acute General Surgery Exam Initial Vital Signs Temp Pulse Resp BP Pulse Ox 97.6 F 76 16 175/105 100 04/19/18 12:29 04/19/18 12:29 04/19/18 12:29 04/19/18 12:29 04/19/18 12:29 - Hospital Course Hospital course: Mr. Chua is a 22 year old male - Time Spent with Patient Total time spent providing and/or coordinating discharge services: - Discharge Medications Prescriptions: RX: OxyCODONE/APAP 5/325 [Percocet 5/325 MG] 1 each PO Q6HR PRN 7 Days #20 tablet PRN Reason: Pain Amoxicillin/Clavulanate [Augmentin] 875 mg PO BIDWM 7 Days #14 tablet RX: Docusate [Colace] 100 mg PO BID #30 capsule Home Medications: Amoxicillin/Clavulanate [Augmentin] 875 mg PO BIDWM 7 Days #14 tablet 04/21/18 [Rx] RX: Docusate [Colace] 100 mg PO BID #30 capsule 04/21/18 [Rx] RX: OxyCODONE/APAP 5/325 [Percocet 5/325 MG] 1 each PO Q6HR PRN 7 Days #20 tablet 04/21/18 [Rx] Allergies/Adverse Reactions: Allergy/AdvReac Type Severity Reaction Status Date / Time No Known Allergies Allergy Verified 11/18/16 09:49 Date of admission: 04/19/18 17:59 Primary care physician: PCP NONE Labs on day of discharge: Labs from last 24 hours 04/21/18 04/21/18 04/20/18 05:36 05:36 11:58 WBC 8.8 RBC 4.20 Hgb 12.9 D Hct 38.7 MCV 92.1 MCH 30.7 MCHC 33.3 RDW 12.8 Plt Count 195 MPV 11.9 Immature Gran % 0.3 Seg Neutrophils % 63.6 Lymphocytes % 24.0 Monocytes % 10.3 Eosinophils % 1.1 Basophils % 0.7 Neutrophils # 5.6 Lymphocytes # 2.1 Monocytes # 0.9 Eosinophils # 0.1 Basophils # 0.1 Sodium 137 Potassium 3.9 Chloride 104 Carbon Dioxide 25 BUN 10 Creatinine 1.01 Est GFR ( Amer) > 60 Est GFR (Non-Af Amer) > 60 BUN/Creatinine Ratio 10 Glucose 264 H POC Glucose 238 H Calculated Osmolality 292 Calcium 9.2 - Impressions ITS Impressions Abdomen/Pelvis CT 04/19/18 13:59 IMPRESSION: 1. Uncomplicated acute appendicitis with adjacent peritonitis. 2. Trace free fluid is likely reactive. D/ / Abelrado Loyola MD / Abelardo Loyola MD Interpreting Provider: Abelardo Loyola MD - Patient Status Disposition: Home, Self-Care Condition: Good Functional capacity at discharge: independent ambulation Overall status at discharge: patient is back to baseline - Discharge Instructions Instructions: Glimepiride (By mouth), Metformin (By mouth), How to Check Your Blood Sugar (DC), Diabetic Hypoglycemia (GEN), Diabetes Mellitus Type 2 in Adults (DC), Diabetes Mellitus Type 2 in Adults (GEN), What is Insulin (DC), Giving an Insulin Injection (DC), Diabetic Hyperglycemia (DC) Follow Up With: Gaston Haynes MD [Partnered Physician] - 04/29/18 8:30 am (You're schedule for a well check with your primary care physician - Dr. Haynes. Your scheduled appointment is 8:30 AM on April 29. The office will be sending you a new patient packet in the mail, please fill out appropriate medical history on the packet and bring a list of medications you're currently prescribed. If you do not get the packet before your appointment please arrive 30 minutes earlier to fill out the appropriate paperwork. Please give a 24 hour notice to cancel or reschedule your appointment if needed.) Rosey Arias CNP [Advanced Practice Nurse] - 04/27/18 3:30 pm (Surgery follow-up; drain removal) Additional Instructions: General Surgical Discharge Instructions 1. No pushing, pulling, or lifting greater than 15 lbs for 2 weeks 2. You may shower beginning today, but no tub baths, soaking, or swimming for 2 weeks. 3. You may resume driving when you are off narcotics and are safe to react in a car. 4. Take ibuprofen every 8 hours for discomfort. If this does not relieve discomfort, you may take the as needed Percocet. Take narcotics as directed. Do not take more narcotics then directed and do not share your narcotics with any other person. Do not drink alcohol while on narcotics. 5. Take stool softeners (Colace) or a water based laxative (Miralax) while taking narcotics. You may hold for loose stools. 6. Report any fevers greater than 100.5F, increase abdominal discomfort, drainage that looks like pus, increased redness or pain at the surgical site, or any vomiting. 7. Report any pain in the calves, shortness of breath, or rapid heartbeat. 8. Follow-up in the office as directed. 9. If you were prescribed antibiotics, do not stop them without talking to your provider. Drain care- cleanse around the drain with soap and water in the shower daily. Apply dry gauze and tape to secure. Do not allow the drain to dangle. Secure to lanyard or clothing. Empty drain once daily and record outputs and bring to follow-up appointment on 04/27/2018 with the surgery office. - Diet and Activity Activity: increase activity as tolerated Diet: advance to your usual diet <Moriah Barragan - Last Filed: 04/21/18 13:10> - NOTES TO OUTPATIENT PROVIDER Notes to Outpatient Provider: The patient did have elevated blood sugars and and elevated Hgb A1C of 9.8. He was given an Rx for supplies to check his blood sugars. Needs assessment for start of medication regimen if indicated. Orders not resulted at time of discharge: Pending orders 04/19/18 21:12 Surgical Pathology [PTH] Routine 04/20/18 12:18 C-Peptide Stat Glutamic Acid Decarboxylase Ab Stat Insulin, Total and Free Stat Date of Encounter: 04/21/18 Time of Encounter: 13:28 - Discharge Diagnosis (1) Acute appendicitis Priority: Primary Status: Resolved Qualifiers: Acute appendicitis type: with localized peritonitis Appendicitis gangrene presence: without gangrene Appendicitis perforation presence: without perforation Appendicitis abscess presence: without abscess Qualified Code(s): K35.30 - Acute appendicitis with localized peritonitis, without perforation or gangrene (2) Hyperglycemia Priority: Secondary Status: Acute (3) Leucocytosis Priority: Secondary Status: Resolved Qualifiers: Leukocytosis type: unspecified Qualified Code(s): D72.829 - Elevated white blood cell count, unspecified General Surgery Exam Initial Vital Signs Temp Pulse Resp BP Pulse Ox 97.6 F 76 16 175/105 100 04/19/18 12:29 04/19/18 12:29 04/19/18 12:29 04/19/18 12:29 04/19/18 12:29 - General physical appearance well developed, well nourished, no distress - Eyes normal ocular movement - ENT normal mucosa, atraumatic, normocephalic - Neck trachea midline - Respiratory normal respiratory effort, clear to auscultation - Cardiovascular Cardiovascular exam: Present: RRR - Abdomen Abdomen general surgery: Present: bowel sounds present, soft, tender (expected post-operative tenderness), wound (KEVIN drain to bulb suction with 10ml of serousang. drainage noted) - Incision Incision: Present: clean and dry, intact - Integumentary Integumentary general surgery: Present: warm and dry - Neurologic Present: CN 2-12 grossly intact - Psychiatric Psychiatric general surgery: Present: appropriate, oriented to person, oriented to place, oriented to time, speech is normal, memory intact - Hospital Course Hospital course: Mr. Chua is a 22 year old male who presented to the hospital with acute onset of abdominal pain. He did have a CAT scan completed which shows evidence of acute appendicitis. The patient was admitted to the hospital and started on IV antibiotic therapy. He was taken to the operating room with Dr. Gonzales for a laparoscopic appendectomy. He had a surgical drain placed due to concerns for contamination. He was continued on IV antibiotic therapy is in the hospital. He also had concern for hyperglycemia and a hemoglobin A1c was elevated at 9.8. The patient was treated with sliding scale insulin while in the hospital and had slight improvement of his blood sugars. His leukocytosis did resolve with surgical intervention and IV antibiotic therapy. On postoperative day #2, the patient is tolerating a diabetic diet without nausea or vomiting. His vital signs are stable and he is afebrile. His pain is well-controlled. He is ambulating and voiding without difficulty. We will begin discharge planning to home with surgical drain in place. We will transition him to oral antibiotic therapy. He will be scheduled appointment with her primary care physician for further assessment of his blood sugars and start of a medication regimen. The patient will follow-up in the surgery office in the next 1 week for surgical drain removal. - Time Spent with Patient Total time spent providing and/or coordinating discharge services: Date of admission: 04/19/18 17:59 Primary care physician: PCP NONE Discharging clinician: Moriah Barragan Anticipated date of discharge: 04/21/18 Labs on day of discharge: Labs from last 24 hours 04/21/18 04/21/18 04/21/18 11:28 05:36 05:36 WBC 8.8 RBC 4.20 Hgb 12.9 D Hct 38.7 MCV 92.1 MCH 30.7 MCHC 33.3 RDW 12.8 Plt Count 195 MPV 11.9 Immature Gran % 0.3 Seg Neutrophils % 63.6 Lymphocytes % 24.0 Monocytes % 10.3 Eosinophils % 1.1 Basophils % 0.7 Neutrophils # 5.6 Lymphocytes # 2.1 Monocytes # 0.9 Eosinophils # 0.1 Basophils # 0.1 Sodium 137 Potassium 3.9 Chloride 104 Carbon Dioxide 25 BUN 10 Creatinine 1.01 Est GFR ( Amer) > 60 Est GFR (Non-Af Amer) > 60 BUN/Creatinine Ratio 10 Glucose 264 H POC Glucose 183 H Calculated Osmolality 292 Calcium 9.2 04/20/18 04/20/18 04/20/18 20:18 16:33 11:58 WBC RBC Hgb Hct MCV MCH MCHC RDW Plt Count MPV Immature Gran % Seg Neutrophils % Lymphocytes % Monocytes % Eosinophils % Basophils % Neutrophils # Lymphocytes # Monocytes # Eosinophils # Basophils # Sodium Potassium Chloride Carbon Dioxide BUN Creatinine Est GFR ( Amer) Est GFR (Non-Af Amer) BUN/Creatinine Ratio Glucose POC Glucose 244 H 183 H 238 H Calculated Osmolality Calcium - Impressions ITS Impressions Abdomen/Pelvis CT 04/19/18 13:59 IMPRESSION: 1. Uncomplicated acute appendicitis with adjacent peritonitis. 2. Trace free fluid is likely reactive. D/ / Abelardo Loyola MD / Abelardo Loyola MD Interpreting Provider: Abelardo Loyola MD - Diet and Activity Diet: diabetic diet - Attending Attestation For this encounter, I have reviewed the CALENDERER or PA documentation, treatment plan, and medical decision making; and I have had face to face time with this patient. <Yolanda Gonzales - Last Filed: 04/23/18 20:25> - Discharge Diagnosis (1) Leucocytosis Priority: Secondary Status: Resolved Qualifiers: Leukocytosis type: unspecified Qualified Code(s): D72.829 - Elevated white blood cell count, unspecified (2) Acute appendicitis Priority: Primary Status: Resolved Qualifiers: Acute appendicitis type: with localized peritonitis Appendicitis gangrene presence: without gangrene Appendicitis perforation presence: without perforation Appendicitis abscess presence: without abscess Qualified Code(s): K35.30 - Acute appendicitis with localized peritonitis, without perforation or gangrene (3) Hyperglycemia Priority: Secondary Status: Acute General Surgery Exam Initial Vital Signs Temp Pulse Resp BP Pulse Ox 97.6 F 76 16 175/105 100 04/19/18 12:29 04/19/18 12:29 04/19/18 12:29 04/19/18 12:29 04/19/18 12:29 - Hospital Course Hospital course: Mr. Chua is a 22 year old male - Time Spent with Patient Total time spent providing and/or coordinating discharge services: Date of admission: 04/19/18 17:59 Primary care physician: PCP NONE - Impressions ITS Impressions Abdomen/Pelvis CT 04/19/18 13:59 IMPRESSION: 1. Uncomplicated acute appendicitis with adjacent peritonitis. 2. Trace free fluid is likely reactive. D/ / Abelardo Loyola MD / Abelardo Loyola MD Interpreting Provider: Abelardo Loyola MD - Attending Attestation I examined this patient and my medical decision-making was reviewed with the Resident Physician. I agree with the documented findings, disposition and treatment plan as described except to the extent set forth below.
[2018-04-22 15:46] LABS: Insulin, Free 30 uIU/mL (3-19)
[2018-04-22 16:04] LABS: Insulin, Total 37 uIU/mL (3-19)
== END 2018-04-21 13:57 | disposition home or self-care (01) ==
LOC: EMEROOARM 12:28 → 3ANU 12:28
PROVIDERS: ADMIT Surgery; ATTEND Surgery